=== PATIENT | female | born 1965 | race Caucasian/White ===

== ENCOUNTER 2022-05-09 07:22 | Day surgery (SDC) | payer BC ==
[2022-05-08 18:48] VITALS: BMI 19.5
[2022-05-09] MEDS ORDERED: LIDOCAINE HCL/PF 2% SDV 5ML VIAL ONE (08:12)
[2022-05-09] MEDS ORDERED: PROPOFOL 120 ML ONE (08:12)
[2022-05-09 10:35] VITALS: TEMP 97.7
[2022-05-09 11:05] VITALS: BP 121/84; PULSE 66; RESP 16
== END 2022-05-09 10:57 | disposition home or self-care (01) ==
LOC: FASU-ENDO 07:22
PROVIDERS: ATTEND Internal Medicine
PROC: 0DB68ZX Excision of Stomach, Via Natural or Artificial Opening Endoscopic, Diagnostic (ICD-10-PCS; 2022-05-09)
PROC: 0DB38ZX Excision of Lower Esophagus, Via Natural or Artificial Opening Endoscopic, Diagnostic (ICD-10-PCS; principal; 2022-05-09 10:09)
DX: Z13.810 Encounter for screening for upper gastrointestinal disorder (principal); K29.50 Unspecified chronic gastritis without bleeding; K21.00 Gastro-esophageal reflux disease with esophagitis, without bleeding
CPT/HCPCS: 87426; 88305-TC; 88342-TC; C9803-CS; U0003; U0005